=== PATIENT | female | born 2000 | race Caucasian/White ===

== ENCOUNTER 2022-02-13 09:20 | Emergency (ER) | payer MEDICAID, SELFPAY ==
[2022-02-13 09:21] VITALS: BP 126/71; PULSE 71; RESP 16; TEMP 36.3; O2SAT 99; BMI 31.8
--- NOTE | 2022-02-13 09:33 | US_ITS ---
STUDY: FIRST TRIMESTER OBSTETRICAL ULTRASOUND REASON FOR EXAM: Female, 21 years old bleeding and beta-hCG of 806 LMP: Unknown. TECHNIQUE: Transvaginal TECHNICAL QUALITY: Adequate. PRIOR ULTRASOUND: None. FINDINGS: There is visualization of a single gestational sac in a normal intrauterine position. The mean sac diameter (MSD) measures 0.5 cm, indicating an estimated gestational age (EGA) of 5 weeks, 2 days. The gestational sac shape is within normal limits. There is no demonstrated yolk sac. There is no demonstrated embryo ( pole). The estimated gestation age (EGA) by US is 5 weeks, 2 days. The estimated date of delivery (DEBBIE) by US is 10/14/2022. The uterus measures 9.2 x 4.4 x 5.5 cm. There is no demonstrated uterine fibroid. The cervix is closed. The right ovary measures 4.6 x 3.3 x 2.7 cm. There is a simple appearing 2.2 x 1.8 x 1.7 cm right ovarian cyst. There are peripherally located subcentimeter cysts. Spectral analysis and Doppler flow to right ovary is within normal limits. The left ovary measures 3.5 x 1.7 x 2.8 cm. There are peripherally located subcentimeter cysts. There is no visualized left adnexal mass or complex lesion. There is no fluid in the cul de sac. There are internal echoes within the visualized urinary bladder. US/Transvaginal w/Preg US IMPRESSION: Findings suggestive of an early intrauterine with an estimated gestational age by ultrasound of 5 weeks and 2 days. No yolk sac nor crown-rump length identified. Peripherally located subcentimeter ovarian cyst suggestive of polycystic ovarian syndrome. Simple 2.8 x 1.8 x 1.7 cm right ovarian cyst. Internal echoes within the visualized urinary bladder may be secondary to a history of cystitis. Electronically Signed: Eda Johnson MD at 11:13 EST ,
--- NOTE | 2022-02-13 09:34 | EDS_ITS ---
HPI HPI - Female History of Present Illness Chief Complaint: Vag Bld, Preg Detail of Chief Complaint: Vaginal bleeding and Informant: patient Narrative Narrative: Patient presents the emergency department complaint of vaginal bleeding in . She has not had any care yet. Her COMMERCIAL AGENT is . Patient is G2, P0 with prior miscarriage. She has a history of PCOS. Patient believes she is about 9 weeks . Bleeding started last evening and she is gone through 2 pads since the bleeding started. She denies passing any clots or tissue. Patient describes some abdominal cramping. Denies urinary symptoms. PFSH PFSH Medical History no medical history Home Medications ondansetron 4 mg disintegrating tablet 4 mg PO Q8H PRN PRN Nausea #10 tabs 02/13/22 [Rx Last Taken Unknown] [id number] 1 mg tablet tab PO 02/13/22 [History Last Taken Unknown] Allergy/AdvReac Type Severity Reaction Status Date / Time No Known Allergies Allergy Verified 02/13/22 09:24 Surgical History no surgical history Social History Smoking Status: Never smoker ROS ROS ED Review of Systems ROS Unobtainable: other Constitutional Constitutional ED: Reports lethargy; Denies chills, fever(s), sweats or weight loss Eyes Eyes: Denies blurry vision, change in vision or diplopia ENT ENT ED: Denies rhinorrhea or sore throat Cardiovascular Cardiovascular: Denies chest pain, orthopnea or racing heartbeat Respiratory/Chest Respiratory/Chest: Denies cough, dyspnea, dyspnea on exertion, orthopnea or sputum Gastrointestinal Gastrointestinal: Reports abdominal pain; Denies diarrhea, nausea or vomiting Genitourinary Genitourinary ED: Reports other Details: Vaginal bleeding ; Denies dysuria, hematuria or urinary frequency Musculoskeletal Musculoskeletal: Denies arthralgias, back pain, myalgias or neck pain Integumentary Denies abscess, Abrasions or rash Neurologic Neurologic: Denies headache(s) or weakness Psychiatric Psychiatric: Denies anxiety, depression or suicidal thoughts Endocrine Endocrinology: Denies polydipsia, polyphagia or polyuria Hematologic/Lymphatic Hematologic/Lymphatic: Denies easy bleeding, easy bruising or lymphadenopathy Allergic/Immunologic Allergic/Immunologic ED: Denies mouth swelling, tongue swelling or urticaria EXAM Physical Exam Const Vital Signs: 02/13/22 09:21 Temperature 97.4 F L Temperature Source Temporal Pulse Rate 71 Respiratory Rate 16 Blood Pressure 126/71 H Blood Pressure Mean 89 Pulse Ox 99 Oxygen Delivery Method Room Air Positive well nourished and well developed General Appearance ED: well developed and NAD HEENT Reports TM's clear and moist mucous membranes normocephalic and atraumatic; Negative for trauma or tenderness Tympanic Membrane ED: Yes TM's clear Eyes PERRL and EOMs intact bilaterally General Eye ED: Negative for pale conjunctiva or scleral icterus Neck no lymphadenopathy, supple and no JVD General: Negative for tenderness Chest Wall inspection of chest normal and palpation of chest normal Chest: Negative for tenderness Resp normal respiratory effort and clear to auscultation bilaterally Effort and Inspection: Negative for respiratory distress or pain with movement Auscultation: Negative for rhonchi, wheezes or diminished lung sounds Cardio regular rate, regular rhythm, S1 normal heart sound, S2 normal heart sound and no murmurs Peripheral Pulses: pulses 2+ throughout GI normal to inspection, nondistended, normoactive bowel sounds, soft to palpation, non-tender, non-distended and no masses Back/Spine no CVA tenderness and no thoracic nor lumbar tenderness Extremity normal to inspection General Extremety ED: Negative for edema General Extremity: Negative for edema Neuro oriented x3, CN's II-XII intact bilaterally, no sensory deficits noted and gait normal Sensorium / Orientation: awake, alert, oriented to person, oriented to place and oriented to time Motor Exam: strength 5/5 throughout and strength abnormal Psych mental status grossly normal Skin no rashes or lesions noted and no wounds MDM MDM MDM Narrative Medical decision making narrative: IV line established on arrival. Patient's blood type is O+. hCG was 806. H&H was normal. Urinalysis was normal. Pelvic ultrasound obtained showed what appeared to be a intrauterine gestation measuring 5 weeks and 2 days. Evidence of polycystic ovarian disease. I did discuss case with patient's COMMERCIAL AGENT who will repeat an hCG in 48 hours and repeat ultrasound within a week. Patient will be discharged to home with instructions to return if persistent heavy bleeding, worsening pain, or condition worsen anyway. Lab Data Attestation: I reviewed the patient's lab results. Labs: Laboratory Results - last 24 hr 02/13/22 02/13/22 02/13/22 09:55 09:55 09:55 WBC 9.9 RBC 4.60 Hgb 13.1 Hct 40.1 MCV 87.2 MCH 28.5 MCHC 32.7 RDW Std Deviation 40.7 RDW Coeff of [place] 13.0 Plt Count 236 MPV 10.4 Immature Gran % (Auto) 0.300 Neut % (Auto) 62.1 Lymph % (Auto) 27.8 [place] % (Auto) 7.9 Eos % (Auto) 1.4 Baso % (Auto) 0.5 Absolute Neuts (auto) 6.2 Absolute Lymphs (auto) 2.76 Nucleated RBC % 0 HCG, Quant 806 H Urine Color Urine Clarity Urine pH Ur Specific [place] Urine Protein Urine Glucose (UA) Urine Ketones Urine Occult Blood Urine Nitrite Urine Bilirubin Urine Urobilinogen Ur Leukocyte Esterase Urine RBC Urine WBC Ur Squamous Epith Cells Urine Bacteria Urine Mucus Blood Type O POSITIVE 02/13/22 13:00 WBC RBC Hgb Hct MCV MCH MCHC RDW Std Deviation RDW Coeff of [place] Plt Count MPV Immature Gran % (Auto) Neut % (Auto) Lymph % (Auto) [place] % (Auto) Eos % (Auto) Baso % (Auto) Absolute Neuts (auto) Absolute Lymphs (auto) Nucleated RBC % HCG, Quant Urine Color Yellow Urine Clarity Clear Urine pH 7.0 Ur Specific [place] 1.015 Urine Protein 15 H Urine Glucose (UA) Normal Urine Ketones Negative Urine Occult Blood 150 H Urine Nitrite Negative Urine Bilirubin Negative Urine Urobilinogen 1 H Ur Leukocyte Esterase 25 H Urine RBC 0-5 SEEN Urine WBC 0 SEEN Ur Squamous Epith Cells 0-5 SEEN Urine Bacteria 0 SEEN Urine Mucus 0 SEEN Blood Type Radiography Diagnostic Testing: Clinical Impression(s) from Imaging Studies Obstetrics Ultrasound 02/13/22 09:33 IMPRESSION: Findings suggestive of an early intrauterine with an estimated gestational age by ultrasound of 5 weeks and 2 days. No yolk sac nor crown-rump length identified. Peripherally located subcentimeter ovarian cyst suggestive of polycystic ovarian syndrome. Simple 2.8 x 1.8 x 1.7 cm right ovarian cyst. Internal echoes within the visualized urinary bladder may be secondary to a history of cystitis. Electronically Signed: Eda Johnson MD at 11:13 EST , Discharge Plan Triage Chief Complaint: Vag Bld, Preg ED Provider: Clemente Carmichael Dx/Rx/DC Orders Clinical Impression: , threatened Instructions: ED Possible Miscarriage ... Prescriptions: New ondansetron [ondansetron] 4 mg tablet,disintegrating 4 mg PO Q8H PRN PRN (Reason: Nausea) Qty: 10 0RF No Action 1 mg Tablet PO Primary Care Provider: Care Physician,No Primary Referrals: Lea Lay MD [Med Staff - Active Staff] - 2 Days Care Physician,No Primary [Primary Care Provider] - Activity Restrictions/Additional Instructions: You are to have a repeat quantitative hCG in [address] Lay's office to have this done. Disposition Disposition: Home, Self Care
[2022-02-13 10:16] LABS: Absolute Lymphocyte Count 2.76 X10^3/uL (0.83-4.51); Absolute Neutrophil Count 6.2 X10^3/uL (2.0-7.7); Basophil# 0.05 X10^3/uL; Basophil% 0.5 % (0-1); Eosinophil# 0.14 X10^3/uL; Eosinophils% 1.4 % (0-5); Hematocrit 40.1 % (37-47); Hemoglobin 13.1 g/dL (12.0-15.0); Lymphocyte # 2.76 X10^3/ul (0.83-4.51); Lymphocyte % 27.8 % (19-41); Mean Corp Hgb Conc 32.7 g/dL (32-36); Mean Corpuscular Hgb 28.5 pg (27.0-32.0); Mean Corpuscular Volume 87.2 fL (81-99); Mean Platelet Vol. 10.4 fl (6.2-12.0); Monocyte# 0.79 X10^3/uL; Monocyte% 7.9 % (0-10); NRBC Flagged by Analyzer 0 % (0-5); Neutrophil # 6.17 X10^3/uL (2.7-7.7); Neutrophil % 62.1 % (47-70); Platelet Count 236 K/mm3 (150-450); RBC Distribution Width SD 40.7 fl (35.1-43.9); White Blood Count 9.9 K/mm3 (4.4-11.0)
[2022-02-13 10:30] LABS: hCG Titer Quant., Serum 806 mIU/mL (1-3)
[2022-02-13 13:04] LABS: Bacteria 0 SEEN /hpf (None Seen); Mucous, Urine 0 SEEN /hpf (<or=2+); White Blood Cells 0 SEEN /hpf (0-5)
[2022-02-13 13:05] LABS: Color, Urine Yellow (Yellow); Glucose, Dipstick Normal (Normal); Ketone-Dipstick Negative (Negative); Leukocyte Esterase-Dipstick 25 /ul (Negative); Nitrite-Dipstick Negative (Negative); Occult Blood-Urine 150 /ul (Negative); Protein-Dipstick 15 mg/dl (Negative); Specific Gravity, Urine 1.015 (1.002-1.030); Urine Bilirubin Dipstick Negative (Negative); Urine Clarity Clear (Clear); Urine Urobilinogen 1 mg/dl (Normal)
[2022-02-13 13:10] LABS: Red Blood Cells-Urine 0-5 SEEN /hpf (0-5)
[2022-02-13 13:11] LABS: Squamous Epithelial Cells - UA 0-5 SEEN /hpf (5-10)
[2022-02-13 14:40] VITALS: BP 124/77; PULSE 62; RESP 15; O2SAT 98
== END 2022-02-13 14:42 | disposition home or self-care (01) ==
PROVIDERS: Emergency Provider Emergency Medicine; Visit Provider Emergency Medicine
DX: O20.0 Threatened abortion (principal); E28.2 Polycystic ovarian syndrome; O99.281 Endocrine, nutritional and metabolic diseases complicating pregnancy, first trimester; O99.891 Other specified diseases and conditions complicating pregnancy; R10.9 Unspecified abdominal pain
CPT/HCPCS: J2405; 76817; 81001; 84702; 85025; 86900; 86901; 99283; A4216

== ENCOUNTER → 2022-02-15 | Outpatient (CLI) | payer MEDICAID, SELFPAY ==
[2022-02-15 15:14] LABS: hCG Titer Quant., Serum 135 mIU/mL (1-3)
== END | disposition home or self-care (01) ==
LOC: PAVLAB 14:29
PROVIDERS: Referring Provider Obstetrics & Gynecology; Visit Provider Obstetrics & Gynecology
DX: O20.0 Threatened abortion (principal)
CPT/HCPCS: 36415; 84702